=== PATIENT | female | born 2000 | race African-American/Black ===

== ENCOUNTER 2019-11-02 18:46 | Emergency (ER) | payer OTHER ==
[~2019-11-02] VITALS: Ht 160 cm; Wt 62.7 kg
[2019-11-02] MEDS ORDERED: PREDNISONE20 MG PO (20:14)
[2019-11-02 20:25] VITALS: BP 126/74; PULSE 74; TEMP 98.2
== END 2019-11-02 20:23 | disposition home or self-care (01) ==
LOC: COL.ER 18:46
DX: T78.40XA Allergy, unspecified, initial encounter (principal)
CPT/HCPCS: J1100; J1200